=== PATIENT | female | born 1950 | race Caucasian/White ===

== ENCOUNTER 2016-12-24 12:52 | Emergency (ER) | payer MEDICARE ==
--- NOTE | 2016-12-24 13:10 | ED Physician Documentation ---
Upper Respiratory Symptoms - HPI Stated Complaint: Cough Chief Complaint: Cough/ Upper Respiratory Additional Information: x 3 days, left chest hurts from coughing, smoker with lung CA hx. non prod cough , denies fever. No other symptoms. Onset: days ago Duration: constant Context: denies: recent foreign travel, insect bite(s), recent chemotherapy, multiple patients Severity: mild Associated Symptoms: denies: fever, chills, sore throat, productive cough, shortness of breath Worsened by Deep Breath: No Further Comments: no - ROS CONST/EYES: denies: weakness CVS/RESP: none LYMPH: denies: leg swelling GI/: none NEURO/PSYCH: denies: fainting, dizziness MS/SKIN: denies: joint pain - PAST HX Lung Disease: other (cancer with surgery 8 years ago.) PE Risk Factors: hypertension, cancer Other History: cancer chemo, cancer radiation tx, hypertension Surgeries/Procedures: other (left lobectomy) Allergies/Adverse Reactions: Allergies Allergy/AdvReac Type Severity Reaction Status Date / Time No Known Allergies Allergy Unverified 12/24/16 13:03 Home Medications: Ambulatory Orders Medication Instructions Recorded Clonazepam [Clonazepam] 1 mg PO BID 12/24/16 Lisinopril [Zestril] 20 mg PO DAILY 12/24/16 Metoprolol Tartrate [Lopressor] 25 mg PO BID 12/24/16 Paroxetine Mesylate [Pexeva] 20 mg PO DAILY 12/24/16 amLODIPine BESYLATE [Norvasc] 10 mg PO 0900 12/24/16 - SOCIAL HX Smoking History: cigarettes, greater than 1 pack/day Alcohol Use: none Drug Use: none - FAMILY HX Family History: none, no significant history - VITAL SIGNS Vital Signs: Vital Signs Temp Pulse Resp BP Pulse Ox 98 F 88 20 110/66 95 12/24/16 12:55 12/24/16 12:55 12/24/16 12:55 12/24/16 12:55 12/24/16 14:07 - REVIEWED ASSESSMENTS Nursing Assessment Reviewed: Yes Vitals Reviewed: Yes Progress - Results/Orders Results/Orders: our labs are not complete beause the lab machines not func prop. I explained this to patient. ED Results Lab/Radiology - Lab Results Lab Results: Lab Results 12/24/16 13:45 Sodium 134 mmol/L L mmol/L (137-145) Potassium 3.6 mmol/L mmol/L (3.5-5.1) Chloride 96 mmol/L L mmol/L (98-107) Carbon Dioxide 31 mmol/L H mmol/L (22-30) BUN 14 mg/dL mg/dL (7-17) Creatinine 0.80 mg/dL mg/dL (0.52-1.04) Estimated Creat Clear 96 Est GFR ( Amer) > 60 (60 - ) Est GFR (Non-Af Amer) > 60 (60 - ) Glucose 100 mg/dL mg/dL (74-106) Calcium 9.5 mg/dL mg/dL (8.4-10.2) Total Bilirubin 0.3 mg/dL mg/dL (0.2-1.3) AST 15 U/L U/L (15-46) ALT 13 U/L U/L (13-69) Alkaline Phosphatase 71 U/L U/L (38-126) Total Protein 7.6 g/dL g/dL (6.3-8.2) Albumin 3.9 g/dL g/dL (3.5-5.0) - Radiology Radiology Impressions: no acute, no pneumonia, no bronchitis - Orders Orders: ED Orders Category Date Time Status Assess pulse oximetry Q1H Care 12/24/16 13:07 Active CHEST P.A.&LAT 2 VIEWS [RAD] Stat Exams 12/24/16 Taken CBC/PLATELET/DIFF Routine Lab 12/24/16 13:45 Received CMP Routine Lab 12/24/16 13:45 Completed Upper Respiratory Symptoms - EXAM General Appearance: no acute distress, alert EENT: eyes nml inspection, nml ENT inspection, pharyngeal erythema Neck: normal inspection, supple. No: lymphadenopathy Respiratory: no resp. distress, breath sounds nml, speaks full sentences. No: respiratory distress Abdomen: non-tender CVS: reg rate & rhythm, heart sounds normal, equal pulses Skin: color nml, no rash, warm,dry Extremities: non-tender, normal range of motion Neuro/Psych: oriented x3, neuro intact, mood/affect nml Discharge Clincal Impression: Cough, Smokers' cough Seasonal allergic reaction Qualifiers: Chronicity: acute Allergic rhinitis trigger: unspecified Qualified Code(s): J30.2 - Other seasonal allergic rhinitis Referrals: Joann Morales MD [STAFF PHYSICIAN] - 2 Days Condition: Good Disposition: 01 HOME, SELF-CARE Decision to Admit: NO Date of Decison to Admit: 12/24/16 Decision Time: 15:04
[2016-12-24 14:14] LABS: eGFR (African) > 60; eGFR (Non-African) > 60
[2016-12-24 15:15] VITALS: BP 110/68
--- NOTE | 2016-12-24 15:26 | Diagnostic Imaging Report ---
JACQUIE BUCKNER [facility] [id number] [facility].[address] [id number] Report Submission Date: Dec 24, 2016 1:26:18 PM CDT Patient Study Name: BENJIE HOBSON Date: Dec 24, 2016 1:06:37 PM CDT Modality Type: CR Gender: F Description: CHEST : 54 Institution: [facility] Physician: JACQUIE BUCKNER Examination: PA and lateral chest. History: Evaluate lung gutierrez. Comparison exam: None provided Findings: PA lateral chest demonstrate a normal cardiac silhouette. Surgical clips left hilum. Chronic appearing interstitial changes. No focal infiltrate. No blunting of the costophrenic margins. Osseous structures are appropriate for age. Impression: Chronic appearing parenchymal changes. No acute appearing pulmonary process. Correlation with older exam recommended when available. Electronically signed on Dec 24, 2016 1:26:18 PM CDT by: Gurvinder POSADA
[2016-12-24 16:56] LABS: BASOPHILS % 0.8 (0.0-1.5); EOSINOPHILS % 1.1 % (0.0-6.8); MEAN CORPUSCULAR HEMOGLOBIN 28.6 pg (28.0-34.0); MONOCYTES % 8.9 % (0.0-11.0); NEUTROPHILS # 7.8 # k/uL (1.4-7.7)
== END 2016-12-24 15:14 | disposition home or self-care (01) ==
LOC: ED 12:52
DX: J30.2 Other seasonal allergic rhinitis (principal); J41.0 Simple chronic bronchitis
CPT/HCPCS: 71020; 80053; 85025; 99283